=== PATIENT | female | born 1990 | race Asian ===

== ENCOUNTER 2016-10-02 21:29 | Emergency (ER) | payer MEDICAID ==
[~2016-10-02] VITALS: Ht 162.6 cm; Wt 60.0 kg
[~2016-10-02 21:29] MED LIST: ALPR2TAB2 PO; ARIP15TA2 PO; BUPR300T49 PO; CLON2TAB PO; ECHI125T PO; HYDR-3240 PO; MIRT30TA PO; OXYC10TA6 PO; OXYC15TA60 PO; PROP20TA PO; TRAZ50TA18 PO
[2016-10-02] MEDS ORDERED: SODIUM CHLORIDE 0.9% 1,000 ML IV ONE (21:33)
[2016-10-02] MEDS ORDERED: LAMO200T3 PO (21:40)
[2016-10-02] MEDS ORDERED: ZOLP10TA PO (21:40)
[2016-10-02] MEDS ORDERED: SODIUM CHLORIDE FLUSH 10ML SYR IVF ONE (22:00)
[2016-10-02 22:40] LABS: HEMOGLOBIN 15.1 g/dL (11.7-16.4)
[2016-10-02 22:48] LABS: BLOOD UREA NITROGEN 10 mg/dL (7-18)
[2016-10-03 01:53] VITALS: BP 90/60
== END 2016-10-03 01:55 | disposition home or self-care (01) ==
LOC: ED 23:59
DX: T40.1X1A Poisoning by heroin, accidental (unintentional), initial encounter (principal); Y92.9 Unspecified place or not applicable
CPT/HCPCS: 36415; 71010; 80048; 82040; 85025; 93005

== ENCOUNTER 2019-06-29 19:28 | Emergency (ER) | payer MEDICAID ==
[~2019-06-29] VITALS: Ht 162.6 cm; Wt 62.9 kg
[~2019-06-29 19:28] MED LIST changes: -ARIP15TA2 PO; +ARIP15TA3 PO; +LAMO200T3 PO; -TRAZ50TA18 PO; +TRAZ50TA66 PO; +ZOLP10TA PO
--- NOTE | 2019-06-29 19:47 | NUR ---
ATTEMPT TO CALL PT FROM LOBBY TO TRIAGE. PT NIL X 1
--- NOTE | 2019-06-29 19:57 | NUR ---
ATTMEPT TO CALL PT FROM LOBBY TO TRIAGE X 2. PT NIL.
[2019-06-29 20:16] VITALS: BP 120/97
[2019-06-29] MEDS ORDERED: LIDOCAINE-MPF 1%, 5ML ONE (20:46)
[2019-06-29] MEDS: LIDOCAINE-MPF 1%, 5ML INFIL ONE (20:54)
--- NOTE | 2019-06-29 21:55 | NUR ---
DC EDUCATION PROVIDED, PT DEMONSTRATES UNDERSTANDING. PT AMBULATED STEADILY TO DC WITH RN
== END 2019-06-29 20:18 ==
LOC: ED 20:12
DX: L02.415 Cutaneous abscess of right lower limb (principal); S00.33XA Contusion of nose, initial encounter; X58.XXXA Exposure to other specified factors, initial encounter; Y93.89 Activity, other specified; Y92.89 Other specified places as the place of occurrence of the external cause; Y99.8 Other external cause status
CPT/HCPCS: 10060; 99283

== ENCOUNTER 2019-07-02 15:16 | Emergency (ER) | payer MEDICAID ==
[~2019-07-02] VITALS: Ht 162.6 cm; Wt 62.3 kg
[2019-07-02 15:17] VITALS: BP 112/68
[2019-07-02] MEDS ORDERED: LIDOCAINE-MPF 1%, 5ML ONE (16:04)
[2019-07-02] MEDS ORDERED: LIDOCAINE-MPF 1%, 5ML INFIL ONE (16:30)
[2019-07-02] MEDS ORDERED: LIDOCAINE 1%, 10ML INFIL ONE (16:30)
== END 2019-07-02 17:22 | disposition home or self-care (01) ==
LOC: ED 16:20
DX: L03.114 Cellulitis of left upper limb (principal); L02.414 Cutaneous abscess of left upper limb; F11.10 Opioid abuse, uncomplicated; F15.10 Other stimulant abuse, uncomplicated; I95.9 Hypotension, unspecified
CPT/HCPCS: 10060; 99283

== ENCOUNTER 2019-07-06 13:46 | Emergency (ER) | payer MEDICAID ==
[~2019-07-06] VITALS: Ht 162.6 cm; Wt 63.0 kg
[2019-07-06 13:57] VITALS: BP 92/50
== END 2019-07-06 14:44 ==
LOC: ED 14:08
DX: J06.9 Acute upper respiratory infection, unspecified (principal); Z48.01 Encounter for change or removal of surgical wound dressing; F17.200 Nicotine dependence, unspecified, uncomplicated
CPT/HCPCS: 99283

== ENCOUNTER 2019-08-27 16:30 | Emergency (ER) | payer MEDICAID ==
[~2019-08-27] VITALS: Ht 167.6 cm; Wt 70.3 kg
--- NOTE | 2019-08-27 16:36 | NUR ---
CALLED NO ANSWER
--- NOTE | 2019-08-27 17:16 | NUR ---
BUFFER NICKEL: PT AMBULATORY TO ROOM FROM LOBBY
--- NOTE | 2019-08-27 17:25 | NUR ---
PT BROUGHT BACK FROM TRIAGE WITH CHIEF COMPLAINT OF INFECTION/WOUND ON LEFT FOOT & RIGHT HAND. PATIENT REPORTS IV DRUG USE, WOUNDS APPEARED ONE WEEK AGO. PT DENIES SOB, CP, N/V. PT IS AWAKE, ALERT, WARM AND DRY.
[2019-08-27 17:29] VITALS: BP 102/49
--- NOTE | 2019-08-27 18:19 | NUR ---
CAREY SHAM AT BEDSIDE TO DISCUSS POC
== END 2019-08-27 18:39 | disposition home or self-care (01) ==
LOC: ED 18:30
DX: L02.511 Cutaneous abscess of right hand (principal); L02.612 Cutaneous abscess of left foot; L02.611 Cutaneous abscess of right foot
CPT/HCPCS: 99283

== ENCOUNTER 2019-10-08 20:32 | Emergency (ER) | payer MEDICAID ==
[~2019-10-08] VITALS: Ht 162.6 cm; Wt 73.5 kg
[2019-10-08 20:43] VITALS: BP 132/86
== END 2019-10-08 21:36 | disposition home or self-care (01) ==
LOC: ED 21:18
DX: L03.116 Cellulitis of left lower limb (principal); L03.115 Cellulitis of right lower limb; F11.10 Opioid abuse, uncomplicated; F17.200 Nicotine dependence, unspecified, uncomplicated; Z72.9 Problem related to lifestyle, unspecified
CPT/HCPCS: 99283

== ENCOUNTER 2019-11-16 15:35 | Emergency (ER) | payer MEDICAID ==
[~2019-11-16] VITALS: Ht 162.6 cm; Wt 74.7 kg
--- NOTE | 2019-11-16 15:53 | NUR ---
Pt states that she uses both IV meth and heroin. R foot has an abcess with redness. Denies fevers.
[2019-11-16] MEDS ORDERED: SULFAMETH./TRIMETHOPRIM DS 800MG/160MG TABLET PO ONE (16:00)
[2019-11-16] MEDS ORDERED: CEPHALEXIN 500 MG CAPSULE PO ONE (16:00)
[2019-11-16] MEDS ORDERED: SULFAMETH./TRIMETHOPRIM DS 800MG/160MG TABLET ONE (16:04)
[2019-11-16] MEDS ORDERED: CEPHALEXIN 500 MG CAPSULE ONE (16:04)
--- NOTE | 2019-11-16 16:43 | NUR ---
GAVE PT DC AND RX INSTRUCTIONS. INSTRUCTED TO RETURN IF WORSENING OF CONDITION. PT VERBALIZED UNDERSTANDING. AMBULATORY AND NO DISTRESS AT THIS TIME.
[2019-11-16 16:44] VITALS: BP 118/77
== END 2019-11-16 16:46 | disposition home or self-care (01) ==
LOC: ED 16:25
DX: L97.519 Non-pressure chronic ulcer of other part of right foot with unspecified severity (principal); F11.20 Opioid dependence, uncomplicated; F17.210 Nicotine dependence, cigarettes, uncomplicated; F10.20 Alcohol dependence, uncomplicated; F15.10 Other stimulant abuse, uncomplicated; Y90.0 Blood alcohol level of less than 20 mg/100 ml
CPT/HCPCS: 99283

== ENCOUNTER 2020-06-17 20:55 | Inpatient (IN) | payer MEDICAID ==
[~2020-06-17] VITALS: Ht 162.6 cm; Wt 82.0 kg
[~2020-06-17 20:55] MED LIST changes: +MIRT-38 PO; -MIRT30TA PO
--- NOTE | 2020-06-17 21:08 | NUR ---
ANA RN: PT PLACED ON 2L NC, NOW 97%
[2020-06-17] MEDS ORDERED: SODIUM CHLORIDE FLUSH 10ML SYR IVF ONE (21:30)
[2020-06-17] MEDS ORDERED: SODIUM CHLORIDE 0.9% 1,000ML IVBOLUS ONE (21:30)
--- NOTE | 2020-06-17 22:30 | NUR ---
UNABLE TO OBTAIN VENOUS ACCESS DESPITE US AND MULTIPLE RN ATTEMPTS. DR LOPEZ AWARE AND WILL BE AT BEDSIDE FOR VENOUS ACCESS WHEN US BECOMES AVAILABLE
[2020-06-17 22:53] LABS: HCT (SEDRATE) 38.6 % (34.6-47.8)
[2020-06-17 22:54] LABS: BASOPHILS % (AUTO) 0 % (0-1); EOSINOPHILS % (AUTO) 2 % (1-7); LYMPHOCYTES % (AUTO) 16 % (22-44); MEAN CORPUSCULAR HEMOGLOBIN 30.4 pg (27.0-34.8); MEAN PLATELET VOLUME 7.4 fL (7.4-10.4); MONOCYTES % (AUTO) 9 % (2-9); NEUTROPHILS % (AUTO) 73 % (42-75); PLATELET COUNT 387 x10^3/uL (130-400); RED BLOOD COUNT 4.21 x10^6/uL (3.82-5.3); RED CELL DISTRIBUTION WIDTH 13.9 % (9.6-15.2)
[2020-06-17 22:55] LABS: CHLORIDE 102 mmol/L (98-107)
[2020-06-17 22:56] LABS: ALANINE AMINOTRANSFERASE 21 U/L (12-78); ALBUMIN 3.1 g/dL (3.4-5.0); ANION GAP 5 mmol/L (5-15); CALCIUM 8.2 mg/dL (8.5-10.1); CREATININE 0.74 mg/dL (0.55-1.02)
[2020-06-17 22:58] LABS: MD NO
--- NOTE | 2020-06-17 23:00 | NUR ---
DR LOPEZ NOW AT BEDSIDE FOR IV INSERTION W/ US
[2020-06-17 23:06] LABS: ALKALINE PHOSPHATASE 123 U/L (45-117); BILIRUBIN,TOTAL 0.3 mg/dL (0.2-1.0); C-REACTIVE PROTEIN, QUANT 2.73 mg/dL (0.02-0.49); TOTAL PROTEIN 7.3 g/dL (6.4-8.2); TROPONIN I < 0.015 ng/mL (0.000-0.045)
[2020-06-17] MEDS ORDERED: OMNIPAQUE 350 MG/ML, 100ML BOTTLE ONE (23:46)
[2020-06-18] MEDS ORDERED: SODIUM CHLORIDE 0.9% 1,000ML IVBOLUS ONE (00:30)
[2020-06-18] MEDS ORDERED: VANCOMYCIN 1,700 MG in SODIUM CHLORIDE 0.9% 250 ML IV ONE (00:30)
[2020-06-18] MEDS ORDERED: AZITHROMYCIN 500 MG in SODIUM CHLORIDE 0.9% 250 ML IV ONE (00:30)
[2020-06-18] MEDS ORDERED: VANCOMYCIN PER PHARMACY MC ONE (00:30)
[2020-06-18] MEDS ORDERED: CEFTRIAXONE PMX 1GM/50ML 50 ML IVPB ONE (00:30)
--- NOTE | 2020-06-18 00:58 | NUR ---
COVID SWAB DONE AND WALKED TO LAB AT THIS TIME, VANCO STARTED PER PHARMACY ADDITIONAL BOLUS ALSO STARTED
[2020-06-18] MEDS ORDERED: ONDANSETRON ODT 4 MG PO PRN (01:30)
[2020-06-18] MEDS ORDERED: DOCUSATE 100 MG CAPSULE PO PRN (01:30)
[2020-06-18] MEDS ORDERED: ONDANSETRON 2MG/ML, 2ML IVPush PRN (01:30)
[2020-06-18] MEDS ORDERED: BISACODYL 10 MG SUPP PR PRN (01:30)
[2020-06-18] MEDS ORDERED: morphine SULFATE 10 MG/ML, 1ML IVPush PRN (01:30)
[2020-06-18] MEDS ORDERED: POLYETHYLENE GLYCOL 17 GM PACKET PO PRN (01:30)
[2020-06-18] MEDS ORDERED: PROMETHAZINE 25 MG/ML, 1ML IM PRN (01:30)
[2020-06-18] MEDS ORDERED: OXYcodone IR 5MG TABLET PO PRN (01:30)
[2020-06-18] MEDS ORDERED: ACETAMINOPHEN 325 MG TABLET PO PRN (01:30)
[2020-06-18] MEDS ORDERED: ENOXAPARIN 40 MG/0.4 ML SQ SCH (01:30)
[2020-06-18] MEDS ORDERED: VANCOMYCIN PER PHARMACY MC PRN (01:30)
[2020-06-18] MEDS ORDERED: KETOROLAC 30 MG/1 ML IV PRN (01:30)
[2020-06-18 02:01] VITALS: BP 123/81
[2020-06-18] MEDS ORDERED: PHARMACOKINETIC CONSULTATION MC ONE (02:30)
[2020-06-18] MEDS ORDERED: PHARMACOKINETIC MONITORING MC PRN (02:30)
[2020-06-18] MEDS: D5%-0.45% NACL 1,000 ML IV SCH ×2 (03:00→10:44)
[2020-06-18 07:03] VITALS: BP 117/70
[2020-06-18 08:04] LABS: BASOPHILS % (AUTO) 0 % (0-1); EOSINOPHILS % (AUTO) 2 % (1-7); LYMPHOCYTES % (AUTO) 33 % (22-44); MEAN CORPUSCULAR HGB CONC 33.4 g/dL (32.4-35.8); MEAN PLATELET VOLUME 7.5 fL (7.4-10.4); MONOCYTES % (AUTO) 8 % (2-9); NEUTROPHILS % (AUTO) 56 % (42-75); PLATELET COUNT 334 x10^3/uL (130-400); RED BLOOD COUNT 4.29 x10^6/uL (3.82-5.3); RED CELL DISTRIBUTION WIDTH 13.7 % (9.6-15.2)
[2020-06-18 08:07] LABS: MD NO
[2020-06-18 08:13] LABS: ALBUMIN 2.7 g/dL (3.4-5.0); ANION GAP 2 mmol/L (5-15); CALCIUM 7.8 mg/dL (8.5-10.1); CHLORIDE 110 mmol/L (98-107)
[2020-06-18 08:19] LABS: ALANINE AMINOTRANSFERASE 16 U/L (12-78); ALKALINE PHOSPHATASE 113 U/L (45-117); BILIRUBIN,TOTAL 0.5 mg/dL (0.2-1.0); CREATININE 0.68 mg/dL (0.55-1.02); TOTAL PROTEIN 6.6 g/dL (6.4-8.2)
[2020-06-18 08:46] VITALS: BP 117/80
[2020-06-18] MEDS ORDERED: VANCOMYCIN 1,600 MG in SODIUM CHLORIDE 0.9% 250 ML IV SCH (13:00)
[2020-06-18 15:00] VITALS: BP 99/64
[2020-06-18 18:34] VITALS: BP 125/79
[2020-06-18] MEDS ORDERED: AMPICILLIN/SULBACTAM 3 GM in SODIUM CHLORIDE 0.9% 100 ML IV SCH (20:00)
[2020-06-18] MEDS ORDERED: LACTOBACILLUS CHEW TABLET PO SCH (21:00)
[2020-06-18] MEDS ORDERED: CEFTRIAXONE PMX 2GM/50ML 50 ML IVPB SCH (23:30)
[2020-06-18] MEDS ORDERED: AZITHROMYCIN 500 MG in SODIUM CHLORIDE 0.9% 250 ML IV SCH (23:55)
== END 2020-06-18 20:37 | disposition left against medical advice (07) | DRG 871 ==
LOC: ED 06-18 00:09 → EDIP 06-18 01:15 → 3N 06-18 02:00
PROVIDERS: ADMIT Internal Medicine; ATTEND Internal Medicine
DX: A41.9 Sepsis, unspecified organism (principal); G93.41 Metabolic encephalopathy; J15.9 Unspecified bacterial pneumonia; J96.01 Acute respiratory failure with hypoxia; L03.116 Cellulitis of left lower limb; F11.90 Opioid use, unspecified, uncomplicated; F15.90 Other stimulant use, unspecified, uncomplicated; F17.200 Nicotine dependence, unspecified, uncomplicated; F19.10 Other psychoactive substance abuse, uncomplicated; J06.9 Acute upper respiratory infection, unspecified; R65.20 Severe sepsis without septic shock; Z91.19 Patient's noncompliance with other medical treatment and regimen; Z53.29 Procedure and treatment not carried out because of patient's decision for other reasons; Z20.828 Contact with and (suspected) exposure to other viral communicable diseases
CPT/HCPCS: 36415; 71275; 80053; 83605; 84145; 84443; 84484; 85025; 85379; 85651; 86140; 87040; 93005; G0378; J3370; Q9967; J7030; J7050; U0003

== ENCOUNTER 2020-11-05 01:05 | Emergency (ER) | payer MEDICAID ==
[~2020-11-05] VITALS: Ht 162.6 cm; Wt 90.4 kg
[~2020-11-05 01:05] MED LIST changes: +HYDR-2214 PO; -HYDR-3240 PO
[2020-11-05 01:09] VITALS: BP 134/89
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
[2020-11-05] MEDS ORDERED: TOPAMAX (01:41)
[2020-11-05] MEDS ORDERED: ABILIFY (01:41)
[2020-11-05] MEDS ORDERED: LAMICTAL (01:41)
[2020-11-05] MEDS ORDERED: RITALIN (01:42)
[2020-11-05] MEDS ORDERED: LEXAPRO (01:42)
[2020-11-05 01:54] LABS: BASOPHILS % (AUTO) 0 % (0-1); EOSINOPHILS % (AUTO) 6 % (1-7); LYMPHOCYTES % (AUTO) 38 % (22-44); MD NO; MEAN CORPUSCULAR HEMOGLOBIN 31.3 pg (27.0-34.8); MEAN CORPUSCULAR HGB CONC 33.6 g/dL (32.4-35.8); MEAN PLATELET VOLUME 7.9 fL (7.4-10.4); MONOCYTES % (AUTO) 7 % (2-9); NEUTROPHILS % (AUTO) 49 % (42-75); PLATELET COUNT 306 x10^3/uL (130-400); RED BLOOD COUNT 4.46 x10^6/uL (3.82-5.3); RED CELL DISTRIBUTION WIDTH 14.6 % (9.6-15.2)
--- NOTE | 2020-11-05 01:57 | NUR ---
UA SENT. BEDSIDE REPORT GIVEN TO JANICE
[2020-11-05] MEDS ORDERED: DOXYCYCLINE 100MG TABLET PO ONE (02:00)
[2020-11-05] MEDS ORDERED: CEFTRIAXONE 1,000 MG IM ONE (02:00)
[2020-11-05 02:01] LABS: MICROSCOPIC NOT IND
[2020-11-05 02:02] LABS: ALBUMIN 3.7 g/dL (3.4-5.0); ANION GAP 2 mmol/L (5-15); CALCIUM 8.4 mg/dL (8.5-10.1); CHLORIDE 108 mmol/L (98-107); CREATININE 0.85 mg/dL (0.55-1.02)
[2020-11-05 02:03] LABS: CLUE CELLS NONE SEEN (NONE SEEN); WET PREP WBCS NONE SEEN (FEW)
[2020-11-05] MEDS ORDERED: DOXYCYCLINE 100MG TABLET ONE (02:47)
[2020-11-05] MEDS ORDERED: CEFTRIAXONE 1,000 MG ONE (02:48)
[2020-11-05] MEDS ORDERED: NEOSPORIN OINT. PKT 1 PACKET ONE (02:59)
== END 2020-11-05 03:18 | disposition home or self-care (01) ==
LOC: ED 01:27
DX: A64 Unspecified sexually transmitted disease (principal); N89.8 Other specified noninflammatory disorders of vagina; L03.115 Cellulitis of right lower limb; F17.210 Nicotine dependence, cigarettes, uncomplicated; F11.10 Opioid abuse, uncomplicated; F15.10 Other stimulant abuse, uncomplicated; I95.9 Hypotension, unspecified
CPT/HCPCS: 36415; 80048; 81003; 82040; 84703; 85025; 87210; 87491; 87591; 87808; 96372; 99284; 99406; J0696

== ENCOUNTER 2020-11-27 15:19 | Emergency (ER) | payer MEDICAID ==
[~2020-11-27] VITALS: Ht 162.6 cm; Wt 86.9 kg
[~2020-11-27 15:19] MED LIST changes: +ABILIFY; +LAMICTAL; +LEXAPRO; +RITALIN; +TOPAMAX
[2020-11-27 15:31] VITALS: BP 123/72
--- NOTE | 2020-11-27 18:21 | NUR ---
corrective therapy aide: pt from lobby to room 16
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
--- NOTE | 2020-11-27 18:54 | NUR ---
bedside report from oliver rn, pt care transferred at this time. pt resting on gurney, nad, appears comfortable. bed in lowest, rails engaged, call light on lap, pt to be dc'd. dorinda.
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
--- NOTE | 2020-11-27 19:13 | NUR ---
Patient/Caregiver given discharge instructions and they have confirmed that they understand the instructions. Patient ambulatory with steady gait.
== END 2020-11-27 19:14 | disposition home or self-care (01) ==
LOC: ED 19:00
DX: S00.83XA Contusion of other part of head, initial encounter (principal); F17.200 Nicotine dependence, unspecified, uncomplicated; X58.XXXA Exposure to other specified factors, initial encounter; Y93.89 Activity, other specified; Y92.009 Unspecified place in unspecified non-institutional (private) residence as the place of occurrence of the external cause; Y99.8 Other external cause status
CPT/HCPCS: 70450; 70486; 99285

== ENCOUNTER 2020-12-18 09:13 | Emergency (ER) | payer MEDICAID ==
[~2020-12-18] VITALS: Ht 162.6 cm; Wt 80.7 kg
--- NOTE | 2020-12-18 09:24 | NUR ---
EKG done in triage.
[2020-12-18] MEDS ORDERED: METOPROLOL 1 MG/ML, 5ML IVPush PRN (09:30)
[2020-12-18] MEDS ORDERED: SODIUM CHLORIDE FLUSH 10ML SYR IVF ONE (09:30)
[2020-12-18] MEDS ORDERED: SODIUM CHLORIDE 0.9% 1,000ML IVBOLUS ONE ×2 (09:30→10:30)
[2020-12-18] MEDS ORDERED: METOPROLOL 1 MG/ML, 5ML ONE (09:43)
[2020-12-18 09:53] LABS: BASOPHILS % (AUTO) 0 % (0-1); EOSINOPHILS % (AUTO) 1 % (1-7); LYMPHOCYTES % (AUTO) 23 % (22-44); MEAN CORPUSCULAR HEMOGLOBIN 31.3 pg (27.0-34.8); MEAN PLATELET VOLUME 7.8 fL (7.4-10.4); MONOCYTES % (AUTO) 8 % (2-9); NEUTROPHILS % (AUTO) 69 % (42-75); PLATELET COUNT 362 x10^3/uL (130-400); RED BLOOD COUNT 5.03 x10^6/uL (3.82-5.3); RED CELL DISTRIBUTION WIDTH 14.1 % (9.6-15.2)
[2020-12-18 09:57] LABS: ALANINE AMINOTRANSFERASE 61 U/L (12-78); ANION GAP 11 mmol/L (5-15); CHLORIDE 111 mmol/L (98-107); CREATININE 0.78 mg/dL (0.55-1.02)
[2020-12-18 10:01] LABS: ALKALINE PHOSPHATASE 100 U/L (45-117); BILIRUBIN,TOTAL 0.6 mg/dL (0.2-1.0); TOTAL PROTEIN 8.3 g/dL (6.4-8.2); TROPONIN I < 0.015 ng/mL (0.000-0.045)
[2020-12-18] MEDS ORDERED: ONDANSETRON 2MG/ML, 2ML IVPush ONE (10:30)
[2020-12-18] MEDS ORDERED: ONDANSETRON 2MG/ML, 2ML ONE (10:31)
[2020-12-18 12:22] LABS: MICROSCOPIC INDICATED
[2020-12-18 14:21] VITALS: BP 106/48
== END 2020-12-18 14:32 | disposition home or self-care (01) ==
LOC: ED 09:17
DX: O26.891 Other specified pregnancy related conditions, first trimester (principal); Z20.822 Contact with and (suspected) exposure to COVID-19; R11.2 Nausea with vomiting, unspecified; R00.0 Tachycardia, unspecified; R19.7 Diarrhea, unspecified; Z3A.01 Less than 8 weeks gestation of pregnancy
CPT/HCPCS: 36415; 71045; 76801; 80053; 81001; 83605; 83690; 84484; 84702; 84703; 85025; 87086; 93005; 96361; 96374; 96375; 99285; J2405; J7030; U0003; U0005

== ENCOUNTER 2020-12-24 10:02 | Emergency (ER) | payer MEDICAID ==
[~2020-12-24] VITALS: Ht 162.6 cm; Wt 80.5 kg
--- NOTE | 2020-12-24 10:31 | NUR ---
PT AMBULATORY TO BR WITH UPRIGHT STEADY GAIT. PT CHANGED INTO GOWN. AMBULATORY TO BR FOR URINE SAMPLE.
[2020-12-24] MEDS ORDERED: ONDANSETRON 2MG/ML, 2ML ONE (11:05)
[2020-12-24] MEDS ORDERED: SODIUM CHLORIDE 0.9% 1,000ML IVBOLUS ONE (11:30)
[2020-12-24] MEDS ORDERED: ONDANSETRON 2MG/ML, 2ML IVPush ONE (11:30)
[2020-12-24 11:33] LABS: BASOPHILS % (AUTO) 0 % (0-1); EOSINOPHILS % (AUTO) 1 % (1-7); LYMPHOCYTES % (AUTO) 27 % (22-44); MEAN CORPUSCULAR HEMOGLOBIN 31.6 pg (27.0-34.8); MEAN CORPUSCULAR HGB CONC 34.2 g/dL (32.4-35.8); MEAN PLATELET VOLUME 7.6 fL (7.4-10.4); MONOCYTES % (AUTO) 9 % (2-9); NEUTROPHILS % (AUTO) 64 % (42-75); PLATELET COUNT 250 x10^3/uL (130-400); RED BLOOD COUNT 4.83 x10^6/uL (3.82-5.3)
[2020-12-24 11:46] LABS: ALBUMIN 3.9 g/dL (3.4-5.0); ANION GAP 10 mmol/L (5-15); CALCIUM 9.2 mg/dL (8.5-10.1); CHLORIDE 109 mmol/L (98-107)
[2020-12-24 11:49] LABS: ALANINE AMINOTRANSFERASE 55 U/L (12-78); ALKALINE PHOSPHATASE 89 U/L (45-117); BILIRUBIN,TOTAL 0.6 mg/dL (0.2-1.0); CREATININE 0.65 mg/dL (0.55-1.02); TOTAL PROTEIN 7.8 g/dL (6.4-8.2)
--- NOTE | 2020-12-24 12:02 | NUR ---
[place] [facility] [place] VSS/ NADN. CALL LIGHT WITHIN REACH. NO NEEDS AT THIS TIME. DENIES ANY PAIN
[2020-12-24 12:07] LABS: MICROSCOPIC INDICATED
[2020-12-24] MEDS ORDERED: METOCLOPRAMIDE 5 MG/ML, 2ML ONE (12:44)
[2020-12-24] MEDS ORDERED: DIPHENHYDRAMINE 50 MG/ML, 1ML ONE (12:44)
--- NOTE | 2020-12-24 12:56 | NUR ---
PT MEDICATED PER EMAR. NADN/VSS. CALL LIGHT WITHIN REACH
[2020-12-24] MEDS ORDERED: DIPHENHYDRAMINE 50 MG/ML, 1ML IV ONE (13:00)
[2020-12-24] MEDS ORDERED: METOCLOPRAMIDE 5 MG/ML, 2ML IVPush ONE (13:00)
[2020-12-24 13:40] VITALS: BP 105/65
== END 2020-12-24 13:42 | disposition home or self-care (01) ==
LOC: ED 10:19
DX: O26.891 Other specified pregnancy related conditions, first trimester (principal); O21.0 Mild hyperemesis gravidarum; O16.1 Unspecified maternal hypertension, first trimester; O99.331 Smoking (tobacco) complicating pregnancy, first trimester; F17.210 Nicotine dependence, cigarettes, uncomplicated; Z3A.01 Less than 8 weeks gestation of pregnancy
CPT/HCPCS: 36415; 80053; 81001; 83690; 84702; 85025; 96361; 96374; 96375; 99284; 99406; J1200; J2405; J2765; J7030